=== PATIENT | female | born 1990 | race African-American/Black ===

== ENCOUNTER 2021-07-25 13:54 | Inpatient (IN) ==
[2021-07-25] MEDS ORDERED: BUTORPHANOL 2 MG/ML VIAL IV PRN (14:19)
[2021-07-25] MEDS ORDERED: MEPERIDINE 50 MG/1 ML VIAL IV PRN (14:19)
[2021-07-25] MEDS ORDERED: ONDANSETRON 4 MG/2 ML VIAL IV PRN (14:19)
[2021-07-25] MEDS ORDERED: LACTATED RINGERS 1,000 ML IV SCH ×2 (14:30→16:00)
[2021-07-25] MEDS ORDERED: OXYTOCIN/LR 20 UNIT/1,000 ML BAG IV SCH (14:30)
[2021-07-25] MEDS ORDERED: AMPICILLIN INJ 2,000 MG in SODIUM CHLORIDE 0.9% 100 ML IV ONE (14:30)
[2021-07-25 15:15] LABS: Basophils % 0.3 % (0.0-0.8); Eosinophils % 0.3 % (0.00-10.9); Hematocrit 34.2 VOL% (35.7-47.0); Hemoglobin 11.2 GM/DL (12.0-16.0); Immature Granulocytes % 0.7 %; Immature Granulocytes Absolute 0.05 #; Lymphocytes # 1.2 10*3/uL (1.4-4.0); Lymphocytes % 17.1 % (21.3-54.2); Mean Corpuscular HGB Conc 32.7 GM/DL (32-36); Mean Platelet Volume 10.8 FL (9.6-12.0); Monocytes % 7.7 % (1.7-12.7); Neutrophils % 73.9 % (38.7-73.9); Platelet Count 195 T/CUMM (130-400); Red Blood Count 4.22 MC/CUMM (3.8-5.5); Red Cell Distribution Width 14.4 % (9.3-17.3); White Blood Count 7.1 T/CUMM (4-12)
[2021-07-25 15:37] LABS: Alanine Aminotransferase 23 U/L (13-56); Albumin 2.5 G/DL (3.4-5.0); Alkaline Phosphatase 149 U/L (45-117); Aspartate Amino Transferase 19 U/L (0-37); Bilirubin,Total < 0.39 MG/DL (0.20-1.00); Blood Urea Nitrogen 7 MG/DL (7-18); Calcium 9.4 MG/DL (8.5-10.1); Carbon Dioxide 24 MMOL/L (21-32); Estimated Glom Filtration Rate 168 ML/MIN; Glucose 103 MG/DL (74-106); Osmolality,Calculated 272.7 MOS/KG (273-304); Potassium 3.2 MMOL/L (3.5-5.1); Sodium 138 MMOL/L (136-145); Total Protein 6.9 G/DL (6.4-8.2)
[2021-07-25] MEDS ORDERED: ePHEDrine 50 MG/ML VIAL IV PRN (15:43)
[2021-07-25] MEDS ORDERED: CITRIC ACID/SODIUM CITRATE 30 ML UDCUP PO ONE (15:43)
[2021-07-25] MEDS ORDERED: FAMOTIDINE 20 MG/2 ML VIAL IV ONE (15:43)
[2021-07-25] MEDS ORDERED: LACTATED RINGERS 1,000 ML IV ONE (15:43)
[2021-07-25] MEDS ORDERED: PROMETHAZINE 25 MG/1 ML VIAL IM ONE (15:44)
[2021-07-25] MEDS ORDERED: diphenhydrAMINE 50 MG/1 ML VIAL IV PRN ×2 (15:44)
[2021-07-25] MEDS ORDERED: LACTATED RINGERS 250 ML IV PRN (15:44)
[2021-07-25] MEDS ORDERED: NALOXONE 0.4 MG/ML VIAL IV PRN (15:44)
[2021-07-25] MEDS ORDERED: hydrOXYzine HCL 25 MG/1 ML VIAL IM PRN (15:44)
[2021-07-25] MEDS ORDERED: fentaNYL 2 MCG/ROPIV 0.2% EPID 100 ML EPIDURAL SCH (16:00)
[2021-07-25] MEDS ORDERED: AMPICILLIN INJ 1,000 MG in SODIUM CHLORIDE 0.9% 100 ML IV SCH (18:20)
[2021-07-25 18:34] LABS: Mucus,Urine Occasional /LPF (Occasional)
[2021-07-25 18:35] LABS: Protein,Urine Negative; Urine Appearance Clear (Clear); Urine Color Light Yellow (Yellow)
[2021-07-25 18:36] LABS: Bilirubin,Urine Negative (Negative); Blood, Urine Negative (Negative); Glucose,Urine (UA) Negative (Negative); Ketones,Urine Negative (Negative); Nitrite,Urine Negative (Negative); Urine Urobilinogen 0.2 EU/DL (<2.0)
[2021-07-25] MEDS ORDERED: miSOPROStoL 200 MCG TABLET ONE (20:14)
[2021-07-25] MEDS ORDERED: TRANEXAMIC ACID 1,000 MG/10 ML VIAL ONE (20:14)
[2021-07-25] MEDS ORDERED: OXYTOCIN/LR 20 UNIT/1,000 ML BAG IV ONE (20:14)
[2021-07-25] MEDS ORDERED: SODIUM CHLORIDE 0.9% 0 ML IV ONE (20:14)
[2021-07-25] MEDS ORDERED: METHYLERGONOVINE 0.2 MG/1 ML AMP ONE (20:15)
[2021-07-25] MEDS ORDERED: CARBOPROST TROMETHAMINE 250 MCG/ML AMP IM ONE (20:15)
[2021-07-25 20:53] LABS: Cord Venous Blood PCO2 45.7 MMHG; Cord Venous Blood PO2 26.4
[2021-07-25] MEDS ORDERED: IBUPROFEN 800 MG TABLET PO PRN (23:54)
[2021-07-26] MEDS ORDERED: OXYTOCIN/LR 20 UNIT/1,000 ML BAG IV ONE (00:26)
[2021-07-26 05:11] LABS: Basophils % 0.2 % (0.0-0.8); Eosinophils % 0.3 % (0.00-10.9); Hematocrit 32.4 VOL% (35.7-47.0); Hemoglobin 10.3 GM/DL (12.0-16.0); Immature Granulocytes % 0.4 %; Immature Granulocytes Absolute 0.04 #; Lymphocytes # 1.4 10*3/uL (1.4-4.0); Lymphocytes % 15.3 % (21.3-54.2); Mean Corpuscular HGB Conc 31.8 GM/DL (32-36); Mean Corpuscular Volume 82.7 FL (87-102); Mean Platelet Volume 11.1 FL (9.6-12.0); Monocytes % 7.2 % (1.7-12.7); Neutrophils % 76.6 % (38.7-73.9); Platelet Count 155 T/CUMM (130-400); Red Blood Count 3.92 MC/CUMM (3.8-5.5); Red Cell Distribution Width 14.2 % (9.3-17.3); White Blood Count 9.1 T/CUMM (4-12)
[2021-07-26] MEDS ORDERED: LANOLIN 50% CREAM 0.3 OZ TUBE TOP PRN (08:26)
[2021-07-26] MEDS ORDERED: ACETAMINOPHEN 325 MG TABLET PO PRN (08:26)
[2021-07-26] MEDS ORDERED: HYDROCORTISONE 2.5% RECTAL CREAM 30 GM TUBE TOP PRN (08:26)
[2021-07-26] MEDS ORDERED: BISACODYL 10 MG SUPP RECTAL PRN (08:26)
[2021-07-26] MEDS ORDERED: DIPH/TET/ACEL PERT BOOSTER VACCINE 0.5 ML VIAL IM ONE (08:26)
[2021-07-26] MEDS ORDERED: WITCH HAZEL PADS 100/JAR TOP PRN (08:26)
[2021-07-26] MEDS ORDERED: BENZOCAINE 20%/MENTHOL 0.5% SPRAY 56 GM CAN TOP PRN (08:26)
[2021-07-26] MEDS: DOCUSATE SODIUM 100 MG CAPSULE PO SCH (09:08)
[2021-07-26] MEDS: IRON (CARBONYL)/VIT C/B12/FA TABLET PO SCH (09:08)
[2021-07-26] MEDS: POTASSIUM CHLORIDE 20 MEQ TABLET PO SCH (09:08)
[2021-07-26] MEDS: MULTIVITAMIN (PRENATAL) TABLET PO SCH (09:09)
[2021-07-27] MEDS: DOCUSATE SODIUM 100 MG CAPSULE PO SCH ×2 (07:05→08:38)
[2021-07-27 07:15] VITALS: BP 126/75
[2021-07-27 08:26] LABS: Alanine Aminotransferase 26 U/L (13-56); Alkaline Phosphatase 110 U/L (45-117); Aspartate Amino Transferase 30 U/L (0-37); Bilirubin,Total < 0.39 MG/DL (0.20-1.00); Blood Urea Nitrogen 5 MG/DL (7-18); Calcium 8.4 MG/DL (8.5-10.1); Carbon Dioxide 28 MMOL/L (21-32); Estimated Glom Filtration Rate 177 ML/MIN; Glucose 94 MG/DL (74-106); Osmolality,Calculated 273.5 MOS/KG (273-304); Potassium 3.5 MMOL/L (3.5-5.1); Sodium 139 MMOL/L (136-145); Total Protein 5.7 G/DL (6.4-8.2)
[2021-07-27] MEDS: IRON (CARBONYL)/VIT C/B12/FA TABLET PO SCH (08:38)
[2021-07-27] MEDS: POTASSIUM CHLORIDE 20 MEQ TABLET PO SCH (08:39)
[2021-07-27] MEDS: MULTIVITAMIN (PRENATAL) TABLET PO SCH (08:39)
[2021-07-27] MEDS ORDERED: DIPH/TET/ACEL PERT BOOSTER VACCINE 0.5 ML VIAL IM ONE (08:48)
== END 2021-07-27 12:53 | disposition home or self-care (01) | DRG 560 ==
LOC: N.LDOUT 13:54 → N.LD 13:57 → N.OB 23:45
PROVIDERS: ADMIT Obstetrics & Gynecology; ATTEND Obstetrics & Gynecology